=== PATIENT | female | born 1990 | race Caucasian/White ===

== ENCOUNTER 2021-02-25 18:31 | Emergency (ER) | payer SELFPAY ==
[2021-02-25 18:37] VITALS: BP 134/81; PULSE 75; RESP 18; TEMP 36.2; O2SAT 100
--- NOTE | 2021-02-25 18:38 | ED.FEMALEGU ---
HPI - Female Genitourinary General Chief complaint: Urogenital-Female Stated complaint: Possible UTI Time Seen by Provider: 02/25/21 18:37 Source: patient and RN notes reviewed History of Present Illness HPI Narrative: Patient is a 30-year-old female who presents the urgent care with complaints of a possible UTI. Patient states this morning she started having burning with urination and urinary frequency. States that she kind of felt it, and over the last week . Denies of any fever, chills, nausea, vomiting, abdominal pain. Patient has not taken anything [id number] for her symptoms. No other acute complaints. No acute distress noted. Patient aware of the plan of care. Some parts of this dictation were generated by voice recognition software and may contain typographical and/or grammatical inaccuracies. Related Data Allergies Allergy/AdvReac Type Severity Reaction Status Date / Time Penicillins Allergy Unknown HIVES Verified 02/25/21 18:46 Review of Systems Review of Systems: CONSTITUTIONAL: Denies fever, chills, or sweats. EYES: Denies visual changes, redness, or discharge. ENT: Denies rhinorrhea, congestion, sore throat, or otalgia. CARDIOVASCULAR: Denies chest pain, palpitations, or edema. RESPIRATORY: Denies cough or dyspnea. GASTROINTESTINAL: Denies abdominal pain, nausea, vomiting, or diarrhea. GENITOURINARY: Reports dysuria and urinary frequency SKIN: Denies rash or itching. MUSCULOSKELETAL: Denies back pain, joint pain, or myalgia. NEUROLOGIC: Denies headache, numbness, or weakness. All other systems reviewed are negative, except as documented in HPI. PMFSH Comments At the time of my signature, I reviewed and agree with the nursing past medical, surgical, social, and family history. There is no relevant family history pertinent to the patient complaint. Exam Narrative: GENERAL: This is a well-nourished, well-developed patient, in no apparent distress. HEAD: normocephalic, atraumatic. EYES: PERRL. Sclera clear/white. Vision is grossly intact. EARS: External ears normal NOSE: External nose normal with no obvious nasal discharge, nares without redness, no rhinorrhea. THROAT: Mucous membranes moist NECK: Neck supple CARDIOVASCULAR: Regular rate and rhythm without murmurs, gallops, or rubs. RESPIRATORY: Clear to auscultation. Breath sounds equal bilaterally. No wheezes, rales, or rhonchi. GASTROINTESTINAL: Abdomen soft, non-tender, nondistended. SKIN: warm, intact with no suspicious lesions or rash, good texture and turgor. NEURO: awake, alert, and oriented to person, place and time. There were no obvious focal neurologic abnormalities. EXTREMITIES: No clubbing, cyanosis, or edema. BACK: Negative bilateral CVA tenderness Course Vital Signs Vital signs: Vital Signs Temperature 97.2 F L 02/25/21 18:37 Pulse Rate 75 02/25/21 18:37 Respiratory Rate 18 02/25/21 18:37 Blood Pressure 134/81 02/25/21 18:37 Pulse Oximetry 100 02/25/21 18:37 Temperature 97.2 F L 02/25/21 18:47 Pulse Rate 75 02/25/21 18:47 Respiratory Rate 18 02/25/21 18:47 Blood Pressure 134/81 02/25/21 18:47 Pulse Oximetry 100 02/25/21 18:47 Reviewed MDM - Female Genitourinary MDM Narrative Medical decision making narrative: Reviewed lab results with the patient. She is aware that urine analysis may be indicative to urinary tract infection due to slight bacteria and blood in the urine. Advised the patient to complete the oral antibiotic regimen. Make sure you are eating and drinking with the medication. Increase your water intake and avoid sugary and caffeinated drinks. Do not soak in soapy baths. Wear cotton underwear. If you develop any increase in symptoms associated with nausea, vomiting, fever, chills, abdominal pain?go to the emergency room. We will culture the urine and call if medication needs to be changed, based on culture results. Follow-up with your PCP within 2 to 5 days or for worsening sympto
[2021-02-25 18:47] VITALS: BP 134/81; PULSE 75; RESP 18; TEMP 36.2; O2SAT 100
== END 2021-02-25 18:54 | disposition home or self-care (01) ==
PROVIDERS: Emergency Provider Nurse Practitioner Family
DX: N39.0 Urinary tract infection, site not specified (principal)
CPT/HCPCS: 81003; 87086; 87088; 99213; G0463

== ENCOUNTER 2022-03-21 16:24 | Emergency (ER) | payer OTHER, SELFPAY ==
[2022-03-21 16:30] VITALS: BP 132/79; PULSE 110; RESP 20; TEMP 36.8; O2SAT 100
--- NOTE | 2022-03-21 16:30 | ED.URI ---
HPI - URI/Sore Throat General Chief Complaint: Upper Respiratory Infection Stated Complaint: Sore Throat Time Seen by Provider: 03/21/22 16:30 Source: patient and RN notes reviewed History of Present Illness HPI Narrative: Patient is a 31-year-old female who presents the urgent care with complaints of headache, fever, nasal drainage and sore throat. Patient states that started Monday and the other people in her home of also been symptomatic. Patient states she had a negative COVID test at [facility] this morning. No other acute complaints. No acute distress noted. Patient aware of the plan of care. Some parts of this dictation were generated by voice recognition software and may contain typographical and/or grammatical inaccuracies. Related Data Allergies Allergy/AdvReac Type Severity Reaction Status Date / Time Penicillins Allergy Unknown HIVES Verified 03/21/22 16:35 Review of Systems Review of Systems: CONSTITUTIONAL: Reports a fever EYES: Denies visual changes, redness, or discharge. ENT: Reports of rhinorrhea, postnasal drainage and sore throat CARDIOVASCULAR: Denies chest pain, palpitations, or edema. RESPIRATORY: Denies cough or dyspnea. GASTROINTESTINAL: Denies abdominal pain, nausea, vomiting, or diarrhea. GENITOURINARY: Denies dysuria or hematuria. SKIN: Denies rash or itching. MUSCULOSKELETAL: Denies back pain, joint pain, or myalgia. NEUROLOGIC: Denies headache, numbness, or weakness. All other systems reviewed are negative, except as documented in HPI. PMFSH Comments At the time of my signature, I reviewed and agree with the nursing past medical, surgical, social, and family history. There is no relevant family history pertinent to the patient complaint. Exam Narrative: GENERAL: This is a well-nourished, well-developed patient, in no apparent distress. HEAD: normocephalic, atraumatic. EYES: PERRL. Sclera clear/white. Vision is grossly intact. EARS: External ears normal, auditory canals clear and without drainage, TMs normal without perforation. Hearing grossly intact. NOSE: External nose normal with no obvious nasal discharge, nares without redness, no rhinorrhea. THROAT: Mucous membranes moist. Moderate erythema noted posterior oropharynx with mild bilateral tonsillar edema with bilateral exudate and moderate postnasal drainage NECK: Neck supple, non-tender without lymphadenopathy CARDIOVASCULAR: Regular rate and rhythm without murmurs, gallops, or rubs. RESPIRATORY: Clear to auscultation. Breath sounds equal bilaterally. No wheezes, rales, or rhonchi. SKIN: warm, intact with no suspicious lesions or rash, good texture and turgor. NEURO: awake, alert, and oriented to person, place and time. There were no obvious focal neurologic abnormalities. EXTREMITIES: No clubbing, cyanosis, or edema. Course Course Level of Care: Express Care Visit Vital Signs Vital signs: Vital Signs Temperature 98.2 F 03/21/22 16:30 Pulse Rate 110 H 03/21/22 16:30 Respiratory Rate 20 03/21/22 16:30 Blood Pressure 132/79 03/21/22 16:30 Pulse Oximetry 100 03/21/22 16:30 Oxygen Delivery Room Air 03/21/22 16:30 Temperature 98.2 F 03/21/22 16:36 Pulse Rate 110 H 03/21/22 16:36 Respiratory Rate 20 03/21/22 16:36 Blood Pressure 132/79 03/21/22 16:36 Pulse Oximetry 100 03/21/22 16:36 Oxygen Delivery Room Air 03/21/22 16:36 Reviewed MDM - URI/Sore Throat MDM Narrative Medical decision making narrative: Reviewed lab results with the patient. She is aware that strep swab was positive. Advised to complete the oral antibiotic regimen as prescribed. Be sure to eat and drink with the medication. Use a daily antihistamine such as Claritin or Zyrtec. Use Tylenol/ibuprofen as needed for fever or discomfort. Use a humidifier at night. Change her toothbrush within 2 to 3 days. You are considered contagious for up to 24 hours after the start of antibiotics and must be fever free. Follow-up with bridger
[2022-03-21 16:36] VITALS: BP 132/79; PULSE 110; RESP 20; TEMP 36.8; O2SAT 100
== END 2022-03-21 17:11 | disposition home or self-care (01) ==
PROVIDERS: Emergency Provider Nurse Practitioner Family
DX: J02.0 Streptococcal pharyngitis (principal)
CPT/HCPCS: 87880; 99213; G0463

== ENCOUNTER 2022-04-13 18:08 | Emergency (ER) | payer OTHER, SELFPAY ==
[2022-04-13 18:22] VITALS: BP 116/79; PULSE 75; RESP 16; TEMP 37.2; O2SAT 99
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
== END 2022-04-13 19:01 | disposition home or self-care (01) ==
PROVIDERS: Emergency Provider Nurse Practitioner Family
DX: M79.601 Pain in right arm (principal)
CPT/HCPCS: 99213; G0463

== ENCOUNTER 2022-05-05 18:07 | Emergency (ER) | payer OTHER, SELFPAY ==
[2022-05-05 18:27] VITALS: BP 152/85; PULSE 120; PULSE 75; RESP 20; TEMP 38.8; O2SAT 100
--- NOTE | 2022-05-05 19:02 | ED.URI ---
HPI - URI/Sore Throat General Chief Complaint: Upper Respiratory Infection Stated Complaint: Sore Throat Time Seen by Provider: 05/05/22 19:02 Source: patient and RN notes reviewed Mode of arrival: ambulatory Limitations: no limitations History of Present Illness HPI Narrative: 31-year-old female presents with concern for sore throat, headache, fever, upset stomach since yesterday. She denies cough, nasal congestion, rhinorrhea, vomiting or diarrhea. MD elicited complaint: sore throat Related Data Allergies Allergy/AdvReac Type Severity Reaction Status Date / Time Penicillins Allergy Unknown HIVES Verified 05/05/22 18:44 Review of Systems Review of Systems: CONSTITUTIONAL: Reports malaise, fever. EYES: Denies visual changes, redness, or discharge. ENT: Denies rhinorrhea, congestion, sinus pain, otalgia. Reports sore throat. CARDIOVASCULAR: Denies chest pain, palpitations, or edema. RESPIRATORY: Denies cough. Denies dyspnea. GASTROINTESTINAL: Denies abdominal pain, vomiting, diarrhea. Reports upset stomach SKIN: Denies rash or itching. MUSCULOSKELETAL: Reports myalgia. NEUROLOGIC: Reports headache. All systems reviewed & are unremarkable except as noted in HPI and below PMFSH Comments At time of signature, agree with nursing past medical, surgical, social and family history. There is no relevant family history pertinent to the presenting complaint Exam Narrative: GENERAL: Well-appearing, well-nourished, and in no acute distress. HEAD: Normocephalic EYES: PERRLA, conjunctivae clear ENT: Nares clear, turbinates edematous and erythematous, clear discharge. Mucous membranes moist. TM pearly patino with dull light reflex bilaterally; no tragal tenderness. Oropharynx not erythematous without lesions. Tonsils not enlarged and without exudate, no drooling, no hoarseness, no trismus, uvula midline. NECK: Supple. No lymphadenopathy CHEST: Clear to auscultation, breath sounds equal. No wheezing, rhonchi, rales, or stridor. No respiratory distress, speaks in full sentences. HEART: Regular rate and rhythm. No murmur heard. SKIN: Warm, dry, no rash. NEURO: Alert and oriented x3. PSYCH: Normal mood and affect Course Course Emergency Course: Patient is aware of diagnosis, understands and agrees to treatment plan. Anticipatory guidance given. Patient agrees to follow-up as directed and is aware of reasons to seek care at the emergency department. Portions of this record may have been created with voice recognition software Level of Care: Express Care Visit Vital Signs Vital signs: Vital Signs Temperature 101.9 F H 05/05/22 18:27 Pulse Rate 75 05/05/22 18:27 Respiratory Rate 20 05/05/22 18:27 Blood Pressure 152/85 H 05/05/22 18:27 Pulse Oximetry 100 05/05/22 18:27 Oxygen Delivery Room Air 05/05/22 18:27 Temperature 101.9 F H 05/05/22 18:27 Pulse Rate 120 H 05/05/22 18:27 Respiratory Rate 20 05/05/22 18:27 Blood Pressure 152/85 H 05/05/22 18:27 Pulse Oximetry 100 05/05/22 18:27 Oxygen Delivery Room Air 05/05/22 18:27 Reviewed. MDM - URI/Sore Throat MDM Narrative Medical decision making narrative: Differential diagnosis considered: Read virus, strep pharyngitis, allergic rhinitis, upper respiratory tract infection, sinusitis, rhinosinusitis, nasopharyngitis. viral pharyngitis, otitis media, otitis externa, pneumonia, bronchitis, viral cough syndrome, viral syndrome, and influenza. Exam findings show no acute concerns or changes; patient is non-toxic appearing and is in no distress. Patient is appropriate for outpatient treatment and follow-up. Lab Data Attestation: I reviewed the patient's lab results. Labs: Strep Screen Presumptive Negative *(Reference Range: Negative)* Critical Care Time Critical Care Time Critical Care Time: No Discharge Plan Discharge Clinical Impression: Acute tonsillitis Patient Disposi
== END 2022-05-05 19:18 | disposition home or self-care (01) ==
PROVIDERS: Emergency Provider Nurse Practitioner
DX: J03.90 Acute tonsillitis, unspecified (principal)
CPT/HCPCS: 87081; 87880; 99213; G0463

== ENCOUNTER 2023-04-16 08:50 | Emergency (ER) | payer OTHER, SELFPAY ==
[2023-04-16 08:58] VITALS: BP 131/71; PULSE 89; RESP 16; TEMP 36.6; O2SAT 98
--- NOTE | 2023-04-16 09:00 | ED.URI ---
HPI - URI/Sore Throat General Chief Complaint: Upper Respiratory Infection Stated Complaint: Sore Throat History of Present Illness HPI Narrative: PATIENT PRESENTS WITH SORE THROAT NO TROUBLE SWALLOWING AND NO DROOLING SLIGHT COUGH NO FEVER DENEIS ANY URI SYMPTOMS GOOD PO INTAKE AND NORMAL URINATION NORMALLY HEALTHY INDIVIDUAL . CONCERNED THAT THEY MAY HAVE STREP THROAT AND WOULD LIE SWABBED. Related Data Allergies Allergy/AdvReac Type Severity Reaction Status Date / Time Penicillins Allergy Unknown HIVES Verified 04/16/23 09:03 Review of Systems Review of Systems: cONSTITUTIONAL: Denies fever, chills, or sweats. EYES: Denies visual changes, redness, or discharge. ENT: Denies rhinorrhea, congestion, sore throat, or otalgia. CARDIOVASCULAR: Denies chest pain, palpitations, or edema. RESPIRATORY: Denies cough or dyspnea. GASTROINTESTINAL: Denies abdominal pain, nausea, vomiting, or diarrhea. GENITOURINARY: Denies dysuria or hematuria. SKIN: Denies rash or itching. MUSCULOSKELETAL: Denies back pain, joint pain, or myalgia. NEUROLOGIC: Denies headache, numbness, or weakness. PSYCHIATRIC: Denies anxiety or depression. CONSTITUTIONAL: Denies fever, chills, or sweats. EYES: Denies visual changes, redness, or discharge. ENT: Denies rhinorrhea, congestion, sore throat, or otalgia. CARDIOVASCULAR: Denies chest pain, palpitations, or edema. RESPIRATORY: Denies cough or dyspnea. GASTROINTESTINAL: Denies abdominal pain, nausea, vomiting, or diarrhea. GENITOURINARY: Denies dysuria or hematuria. SKIN: Denies rash or itching. MUSCULOSKELETAL: Denies back pain, joint pain, or myalgia. NEUROLOGIC: Denies headache, numbness, or weakness. PSYCHIATRIC: Denies anxiety or depression. PMFSH Comments AT TIME OF SIGNATURE, AGREE WITH NURSING PAST MEDICAL, SURGICAL, SOCIAL AND FAMILY HISTORY. THERE IS NO RELEVANT FAMILY HISTORY PERTINENT TO THE PRESENTING COMPLAINT Exam Narrative: THE PATIENT IS A WELL-DEVELOPED, WELL-NOURISHED IN NO ACUTE DISTRESS. SKIN: SKIN IS WARM AND DRY WITHOUT ERYTHEMA, SWELLING OR EXUDATE. THERE IS GOOD TURGOR. NO TENTING. HEAD: ATRAUMATIC. NORMOCEPHALIC. NO TEMPORAL OR SCALP TENDERNESS. EYES: MOIST AND BRIGHT. SCLERA AND CONJUNCTIVAE NORMAL. NO DISCHARGE. PERRLA. EXTRAOCULAR MOTIONS INTACT. GROSS VISUAL ACUITY INTACT. EARS: PINNA IS NORMAL SHAPE AND CONTOUR. CLEAR EXTERNAL AUDITORY CANALS. TM PEARLY [place] WITH GOOD CONE OF LIGHT, NO ERYTHEMA OR SUPPURATION. BILATERAL CERUMEN NOTED NO GROSS HEARING DEFICIT. NOSE: PINK, MOIST MUCOSA WITH GOOD AIR MOVEMENT. CLEAR RHINORRHEA WITHOUT NASAL FLARING. SEPTUM MIDLINE. MOUTH: MOIST MUCOUS MEMBRANES. THROAT; MILD ERYTHEMA NOTED TO POSTERIOR OROPHARYNX WITH MODERATE POSTNASAL DRAINAGE. WIT EXUDATE NO ULCERATION.. UVULA MIDLINE. NORMAL MOVEMENT OF SOFT PALATE. NECK: SUPPLE AND NONTENDER WITH FULL RANGE OF MOTION WITHOUT DISCOMFORT. NO MENINGEAL SIGNS. LUNGS: EQUAL AND BILATERAL BREATH SOUNDS WITHOUT WHEEZES, RALES OR RHONCHI. CHEST: THE CHEST WALL IS WITHOUT RETRACTIONS OR USE OF ACCESSORY MUSCLES. HEART: HAS A REGULAR RATE AND RHYTHM WITHOUT MURMUR, GALLOPS, CLICK OR RUB. ABDOMEN: SOFT, NONTENDER WITH POSITIVE ACTIVE BOWEL SOUNDS. NO REBOUND TENDERNESS. EXTREMITIES: WITHOUT CYANOSIS, CLUBBING OR EDEMA. EQUAL 2+ DISTAL PULSES AND 2 SECOND CAPILLARY REFILL NOTED. NEUROLOGIC: ALERT, ACTIVE, . THE PATIENT MOVES ALL EXTREMITIES WITH NORMAL MUSCLE STRENGTH. NORMAL MUSCLE TONE IS NOTED. NORMAL COORDINATION IS NOTED. NO FOCAL NEUROLOGICAL FINDINGS NOTED. Course Course Level of Care: Express Care Visit Vital Signs Vital signs: Vital Signs Temperature 36.6 C 04/16/23 08:58 Pulse Rate 89 04/16/23 08:58 Respiratory Rate 16 04/16/23 08:58 Blood Pressure 131/71 04/16/23 08:58 Pulse Oximetry 98 04/16/23 08:58 Oxygen Delivery Room Air 04/16/23 08:58 Temperature 36.6 C 04/16/23 08:58 Pulse Rate 89 04/16/23 08:58 Respiratory Rate 16 04/16/23 08:58
== END 2023-04-16 09:16 | disposition home or self-care (01) ==
PROVIDERS: Emergency Provider Nurse Practitioner Family
DX: J02.9 Acute pharyngitis, unspecified (principal)
CPT/HCPCS: 87880; 99213; G0463

== ENCOUNTER 2023-07-15 10:01 | Emergency (ER) | payer OTHER, SELFPAY ==
[2023-07-15 10:06] VITALS: BP 124/76; PULSE 90; RESP 20; TEMP 36.5; O2SAT 98
[2023-07-15 10:12] VITALS: BP 124/76; PULSE 90; RESP 20; TEMP 36.5
--- NOTE | 2023-07-15 10:30 | ED.EAR ---
HPI - Ear Problem General Chief complaint: Ear Stated complaint: ears hurts Time Seen by Provider: 07/15/23 10:30 Source: patient, RN notes reviewed and old records reviewed Mode of arrival: ambulatory Limitations: no limitations History of Present Illness HPI Narrative: 32 year old female who present to [facility] care with complaints of one week duration of bilateral ear discomfort especially right with some sinus congestion and drainage. Patient reports that she has not had any drainage from her ears, no fever or any changes in her hearing. Patient reports that she has taken Tylenol for her discomfort.Patient denies any cough or chest congestion denies any sore throat or any shortness of breath or wheezing. 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 MD Complaint: ear pain Location: bilateral Duration: intermittent Severity: moderate Discharge from ear: Reports no Treatment prior to arrival: oral analgesic (Tylenol) Related Data Home Medications Medication Instructions Recorded Confirmed bupropion HCl 300 mg 24 hr tablet, 300 mg PO DAILY 07/15/23 07/15/23 extended release Allergies Allergy/AdvReac Type Severity Reaction Status Date / Time Penicillins Allergy Unknown HIVES Verified 07/15/23 10:06 Review of Systems Review of Systems: CONSTITUTIONAL: Denies malaise, chills, sweats, or fever. EYES: Denies visual changes, redness, or discharge. ENT: Reports rhinorrhea, congestion, no sinus pain, positive otalgia and no sore throat. CARDIOVASCULAR: Denies chest pain, palpitations, or edema. RESPIRATORY: Reports no cough.? Denies dyspnea. GASTROINTESTINAL: Denies abdominal pain, nausea, vomiting, diarrhea SKIN: Denies rash or itching. MUSCULOSKELETAL: Denies myalgia. NEUROLOGIC: Denies headache. All systems reviewed & are unremarkable except as noted in HPI and below PMFSH Past Medical History Medical History (Updated 07/15/23 @ 15:37 by Deisy Swift NP) Anxiety Bipolar disorder Strep throat Surgical History Surgical History (Updated 07/15/23 @ 15:38 by Deisy Swift NP) H/O cervical biopsy History of tubal ligation Social History Social History (Updated 07/15/23 @ 12:14 by Deisy Swift NP) Smoking status: Never smoker Alcohol intake: current Alcohol use details: social Substance use type: does not use Living arrangements: with family Gender identity (if verbalized by the patient): Female Comments At time of signature, agree with nursing past medical, surgical, social and family history. There is no relevant family history pertinent to the presenting complaint Exam Narrative: GENERAL: Well-appearing, well-nourished, and in no acute distress. HEAD: Normocephalic EYES: PERRLA, conjunctivae clear ENT: Nares clear, turbinates edematous and erythematous, clear discharge. Mucous membranes moist. TM pearly patino with dull light reflex bilaterally fluid note to ears,; no tragal tenderness. Oropharynx erythematous without lesions. Tonsils enlarged and without exudate, no drooling, no hoarseness, no trismus, uvula midline.some post nasal discharge. NECK: Supple. No lymphadenopathy CHEST: Clear to auscultation, breath sounds equal. No wheezing, rhonchi, rales, or stridor. No respiratory distress, speaks in full sentences.no cough noted SAO2 98% on room air. HEART: Regular rate and rhythm. No murmur heard. SKIN: Warm, dry, no rash. NEURO: Alert and oriented x3. PSYCH: Normal mood and affect Course Course Emergency Course: Patient is aware of diagnosis, understands and agrees to treatment plan.? Anticipatory guidance given.? Patient agrees to follow-up as directed and is aware of reasons to seek care at the emergency department. Portions of this record may have been created with voice recognition software Level of Care: Express Care Visit Vital Signs Vital signs: Vital Signs Tem
== END 2023-07-15 10:50 | disposition home or self-care (01) ==
PROVIDERS: Emergency Provider Registered Nurse
DX: H69.91 Unspecified Eustachian tube disorder, right ear (principal); F41.9 Anxiety disorder, unspecified
CPT/HCPCS: 99213; G0463

== ENCOUNTER 2023-08-27 15:58 | Emergency (ER) | payer OTHER, SELFPAY ==
[2023-08-27 16:00] VITALS: BP 146/85; PULSE 103; RESP 20; TEMP 37.9; O2SAT 100
--- NOTE | 2023-08-27 17:12 | ED.URI ---
HPI - URI/Sore Throat General Chief Complaint: Upper Respiratory Infection Stated Complaint: throat Time Seen by Provider: 08/27/23 17:12 Source: patient, RN notes reviewed and old records reviewed Mode of arrival: ambulatory Limitations: no limitations History of Present Illness HPI Narrative: 32-year-old female who presents to [facility] with complaints of sore throat, some headache pain and fever up to 100.2F for 1 day duration. Patient reports that she she has had history of strep throat in the past. patient reports no known ill contacts. Patient reports that she has taken some Tylenol for her symptoms. Patient reports no shortness of breath , no ear pain or cough, denies any nausea or vomiting or diarrhea, MD elicited complaint: sore throat Pertinent past history: other (strep throat) Onset (ago): day(s) (1) Severity: moderate Pain scale (0-10): 5 Able to tolerate fluids by mouth: Yes Treatments prior to arrival: acetaminophen Related Data Home Medications Medication Instructions Recorded Confirmed bupropion HCl 300 mg 24 hr tablet, 300 mg PO DAILY 07/15/23 08/27/23 extended release buspirone 10 mg tablet 20 mg PO BID 08/27/23 08/27/23 hydroxyzine HCl 25 mg tablet 1 mg PO DAILY PRN Anxiety 08/27/23 08/27/23 Allergies Allergy/AdvReac Type Severity Reaction Status Date / Time Penicillins Allergy Unknown HIVES Verified 08/27/23 16:31 Review of Systems Review of Systems: CONSTITUTIONAL: Reports malaise, chills, sweats, or fever. EYES: Denies visual changes, redness, or discharge. ENT: Reports rhinorrhea, congestion, no sinus pain, no otalgia and positive for sore throat. CARDIOVASCULAR: Denies chest pain, palpitations, or edema. RESPIRATORY: Reports cough.? Denies dyspnea. GASTROINTESTINAL: Denies abdominal pain, nausea, vomiting, diarrhea SKIN: Denies rash or itching. MUSCULOSKELETAL: Denies myalgia. NEUROLOGIC: Reports headache. All systems reviewed & are unremarkable except as noted in HPI and below PMFSH Past Medical History Medical History Anxiety Bipolar disorder Strep throat Surgical History Surgical History H/O cervical biopsy History of tubal ligation Social History Social History (Updated 07/15/23 @ 12:14 by Deisy Swift NP) Smoking status: Never smoker Alcohol intake: current Alcohol use details: social Substance use type: does not use Living arrangements: with family Gender identity (if verbalized by the patient): Female Comments At time of signature, agree with nursing past medical, surgical, social and family history. There is no relevant family history pertinent to the presenting complaint Exam Narrative: GENERAL: Well-appearing, well-nourished, and in no acute distress. HEAD: Normocephalic EYES: PERRLA, conjunctivae clear ENT: Nares clear, turbinates edematous and erythematous, clear discharge. Mucous membranes moist. TM pearly patino with dull light reflex bilaterally; no tragal tenderness. Oropharynx erythematous without lesions. Tonsils enlarged and without exudate, no drooling, no hoarseness, no trismus, uvula midline. NECK: Supple. lymphadenopathy CHEST: Clear to auscultation, breath sounds equal. No wheezing, rhonchi, rales, or stridor. No respiratory distress, speaks in full sentences.SAO2 100% on room air, HEART: Regular rate and rhythm. No murmur heard. SKIN: Warm, dry, no rash. NEURO: Alert and oriented x3. PSYCH: Normal mood and affect Course Course Emergency Course: Patient is aware of diagnosis, understands and agrees to treatment plan.? Anticipatory guidance given.? Patient agrees to follow-up as directed and is aware of reasons to seek care at the emergency department. Portions of this record may have been created with voice recognition software Level of Care: Express Care Visit Vital Signs
== END 2023-08-27 17:25 | disposition home or self-care (01) ==
PROVIDERS: Emergency Provider Registered Nurse; PCP Family Medicine
DX: J02.0 Streptococcal pharyngitis (principal); F41.9 Anxiety disorder, unspecified
CPT/HCPCS: 87880; 99213; G0463

== ENCOUNTER 2024-02-15 17:35 | Emergency (ER) | payer OTHER, SELFPAY ==
[2024-02-15 18:20] VITALS: BP 148/82; PULSE 93; RESP 15; TEMP 36.4; O2SAT 100
--- NOTE | 2024-02-15 23:15 | ED.URI ---
HPI - URI/Sore Throat General Chief Complaint: Upper Respiratory Infection Stated Complaint: Sore Throat and Headache Time Seen by Provider: 02/15/24 18:52 Source: patient, RN notes reviewed and old records reviewed Mode of arrival: ambulatory Limitations: no limitations History of Present Illness HPI Narrative: 33-year-old female to Express Care for complaint of headache, sore throat, bilateral ear pain for 2 days. Patient reports history of chronic strep throat with last episode in August. Patient endorses allergy to penicillin. Patient denies fever, cough, shortness of breath, chest pain, fever. Patient hypertensive in triage. Patient has not attempted to treat her symptoms at home. Patient able to tolerate fluids by mouth. Respirations even and nonlabored. Patient in no acute distress. Related Data Home Medications Medication Instructions Recorded Confirmed bupropion HCl 300 mg 24 hr tablet, 300 mg PO DAILY 07/15/23 02/15/24 extended release buspirone 10 mg tablet 20 mg PO BID 08/27/23 02/15/24 aripiprazole 2 mg tablet 2 mg PO DAILY 02/15/24 02/15/24 Allergies Allergy/AdvReac Type Severity Reaction Status Date / Time Penicillins Allergy Unknown HIVES Verified 08/27/23 16:31 Review of Systems Review of Systems: All systems reviewed & are unremarkable except as noted in HPI and below Constitutional: Constitutional: Reports as per HPI, Denies fever(s) and Reports headache(s) Eyes: Eyes: Reports no additional eye complaints ENT: Reports as per HPI, Reports otalgia ( Bilateral) and Reports sore throat Cardiovascular: Cardiovascular: Reports no additional cardiovascular complaints, Denies chest pain and Denies dyspnea Respiratory: Respiratory: Reports no additional respiratory complaints, Denies cough and Denies dyspnea Musculoskeletal: Musculoskeletal: Reports no additional musculoskeletal complaints Neurologic: Reports system reviewed and no additional complaints, except as documented Psychiatric: Psychiatric: Reports no additional psychiatric complaints PMFSH Past Medical History Medical History Anxiety Bipolar disorder Strep throat Surgical History Surgical History H/O cervical biopsy History of tubal ligation Social History Social History (Updated 07/15/23 @ 12:14 by Deisy Swift NP) Smoking status: Never smoker Alcohol intake: current Alcohol use details: social Substance use type: does not use Living arrangements: with family Gender identity (if verbalized by the patient): Female Comments At the time of my signature, I reviewed and agree with the nursing past medical, surgical, social, and family history. There is no relevant family history pertinent to the patient complaint. Exam Const: General: cooperative, no acute distress, alert, tired appearing, uncomfortable and well nourished Nutritional Appearance: well nourished Orientation/consciousness: patient oriented x3 Limitations: no limitations HENMT: Head: normal to inspection Ears: external ears normal and TM abnormal with fluid behind the TM bilateral Face/Nose/Sinus: Normal external nose present, Normal nares present, normal facial exam, No erythema and No edema Face and sinus: normal facial exam, no erythema and no edema Mouth: Yes Normal oral and palatal mucosa present Throat: uvula midline and abnormal tonsil bilateral erythema, exudates and hypertrophy 2+ Eyes: General: appearance normal, both eyes and all related structures Neck: Neck: normal visual inspection, full ROM and no meningeal signs Lymphatic: no lymphadenopathy noted and no lymphedema noted Chest: Chest palpation & inspection: normal inspection of the chest Resp: Effort & Inspection: normal respiratory effort and able to speak in complete sentences Auscultation: clear to auscultation bilaterally Cardio: Jugular venous d
== END 2024-02-15 19:09 | disposition home or self-care (01) ==
PROVIDERS: Emergency Provider Nurse Practitioner Family
DX: J02.9 Acute pharyngitis, unspecified (principal); F41.9 Anxiety disorder, unspecified
CPT/HCPCS: 87081; 99213; G0463

== ENCOUNTER 2024-10-07 12:59 | Emergency (ER) | payer OTHER, SELFPAY ==
[2024-10-07 13:10] VITALS: BP 113/72; PULSE 85; RESP 17; TEMP 36.4; O2SAT 98
--- NOTE | 2024-10-07 14:01 | ED.EAR ---
HPI - Ear Problem General Chief complaint: Ear Stated complaint: Ear Pain Source: patient and RN notes reviewed Mode of arrival: ambulatory Limitations: no limitations History of Present Illness HPI Narrative: 33-year-old female presents express care complaining of right ear pain. Said her symptoms started yesterday. She says her right ear hearing is a little diminished as well. She says her throat is a little scratchy . Denies any cough, congestion, fever, chills, body aches. She says she has a history of ear infections. She denies wearing headphones in her right ear her swimming recently. She said she does use Q-tips routinely to clean her ears. Related Data Home Medications ?Medication ?Instructions ?Recorded ?Confirmed ?Last Taken ?Type bupropion HCl 300 mg 24 hr tablet, 300 mg PO DAILY 07/15/23 02/15/24 Unknown History extended release buspirone 10 mg tablet 20 mg PO BID 08/27/23 02/15/24 Unknown History aripiprazole 2 mg tablet 2 mg PO DAILY 02/15/24 02/15/24 Unknown History Allergies Allergy/AdvReac Type Severity Reaction Status Date / Time Penicillins Allergy Unknown HIVES Verified 10/07/24 13:10 Review of Systems Review of Systems: CONSTITUTIONAL: Denies fever, chills, or sweats. EYES: Denies visual changes, redness, or discharge. ENT: Denies rhinorrhea, congestion. Positive for otalgia, sore throat, and decreased hearing. CARDIOVASCULAR: Denies chest pain, palpitations, or edema. RESPIRATORY: Denies cough or dyspnea. GASTROINTESTINAL: Denies abdominal pain, nausea, vomiting, or diarrhea. GENITOURINARY: Denies dysuria or hematuria. SKIN: Denies rash or itching. MUSCULOSKELETAL: Denies back pain, joint pain, or myalgia. NEUROLOGIC: Denies headache, numbness, or weakness. PSYCHIATRIC: Denies anxiety or depression. All other systems reviewed are negative, except as documented in HPI. [facility] Past Medical History Medical History Bipolar disorder Anxiety Strep throat Surgical History Surgical History History of tubal ligation H/O cervical biopsy Social History Social History (Reviewed 10/07/24 @ 14:03 by NATALY Pereira Smoking status: Never smoker Alcohol intake: current Alcohol use details: social Substance use type: does not use Living arrangements: with family Gender identity (if verbalized by the patient): Female Comments At the time of my signature, I reviewed and agree with the nursing past medical, surgical, social, and family history. There is no relevant family history pertinent to the patient complaint. Exam Narrative: GENERAL: This is a well-nourished, well-developed adult, in no apparent distress. They are non ill-appearing, nontoxic appearing. HEAD: normocephalic, atraumatic. EYES: Sclera clear/white. Vision is grossly intact. EARS: External ears normal, right auditory canal with erythematous without discharge. Left Auditory canal clear and without drainage, TMs normal without perforation. Hearing grossly intact. NOSE: External nose normal with no obvious nasal discharge, nares without redness, no rhinorrhea. THROAT: Mucous membranes moist, posterior pharynx clear. Uvula midline. NECK: Neck supple, non-tender without lymphadenopathy, masses or thyromegaly. CARDIOVASCULAR: Regular rate and rhythm without murmurs, gallops, or rubs. RESPIRATORY: Clear to auscultation. Breath sounds equal bilaterally. No wheezes, rales, or rhonchi. SKIN: warm, Dry, intact with no suspicious lesions or rash, good texture and turgor. NEURO: awake, alert, and oriented to person, place and time. There were no obvious focal neurologic abnormalities. Course Course Emergency Course: Patient is aware of diagnosis, understands and agrees to treatment plan. Anticipatory guidance given. Patient agrees to follow-up as directed and is aware of reasons to seek care at the emergency department. Portions of this record may have been created with voice recognition software Level of Care: Express Care Visit Vital Signs Vital signs: Vital Signs Temperature 97.6 F 10/07/24 13:10 Pulse Rate 85 10/07/24 13:10 Respiratory Rate 10/07/24 13:10 Blood Pressure 113/72 10/07/24 13:10 Pulse Oximetry 98 10/07/24 13:10 Oxygen Delivery Room Air 10/07/24 13:10 Temperature 97.6 F 10/07/24 13:10 Pulse Rate 85 10/07/24 13:10 Respiratory Rate 10/07/24 13:10 Blood Pressure 113/72 10/07/24 13:10 Pulse Oximetry 98 10/07/24 13:10 Oxygen Delivery Room Air 10/07/24 13:10 Reviewed Medical Decision Making MDM Narrative Medical decision making narrative: Right ear canal has mild swelling and redness. Patient may have otitis externa. She denies swimming recently. Left ear is unremarkable. TMs are intact bilaterally without redness. Will treat empirically with ofloxacin ear drops for the right ear. Discussed physical exam findings. Advised supportive measures and signs/symptoms to go to the ER. Pt is appropriate for outpt treatment and f/u. Differential Diagnosis Differential Diagnosis: Otitis externa, otitis media, allergic rhinitis Vital Signs Vital Signs: Vital Signs Temperature 97.6 F 10/07/24 13:10 Pulse Rate 85 10/07/24 13:10 Respiratory Rate 17 10/07/24 13:10 Blood Pressure 113/72 10/07/24 13:10 Pulse Oximetry 98 10/07/24 13:10 Oxygen Delivery Room Air 10/07/24 13:10 Temperature 97.6 F 10/07/24 13:10 Pulse Rate 85 10/07/24 13:10 Respiratory Rate 17 10/07/24 13:10 Blood Pressure 113/72 10/07/24 13:10 Pulse Oximetry 98 10/07/24 13:10 Oxygen Delivery Room Air 10/07/24 13:10 Critical Care Time Critical Care Time Critical Care Time: No Discharge Plan Discharge Clinical Impression: Otitis externa Qualifiers: Otitis externa type: unspecified type Chronicity: acute Laterality: right Qualified Code(s): H60.501 - Unspecified acute noninfective otitis externa, right ear Patient Disposition: Home Condition: Stable Instructions: Antibiotic Form, Swimmer's Ear (ED) Additional Instructions: -Ear drops as directed for 7-10 days until the pain and swelling are gone. -When administer drug into the affected ear; make sure to ly down with the affected ear facing upward, message the ear canal to help the drops reach the medial end of the canal, then remain in that position for at least 5 mintues. -Avoid using cotton tipped applicator for ears cleaning -Avoid exposing swimming or exposing the affected ear to water during the treatment period Take or alternate tylenol or ibuprofen every 4 - 6 hours if needed for pain. Follow up with primary care provider if condition is not improving in 7 days or sooner if there is new concern. Patient Language: Icelandic Prescriptions: New ofloxacin 0.3 % drops 10 drp RIGHT EAR DAILY 7 Days Qty: 10 0RF No Action bupropion HCl 300 mg tablet extended release 24 hr 300 mg PO DAILY buspirone 10 mg tablet 20 mg PO BID aripiprazole 2 mg tablet 2 mg PO DAILY Follow-up/Referrals: Aline,Yamil Santana MD [Primary Care Provider] - Time of Disposition: 13:36
--- OUTSIDE RECORDS SUMMARY | 2024-10-07 14:42 | XMS_ITS | Clinical Summary ---
Author Organization [facility] Address [address] [place] [address] Phone Care Team Providers Care Medical Educator Name Role Phone Provider, None Primary Care Provider Unavailabl e Social History Tobacco Use Types Packs/Day Years Used Date Smoking Tobacco: Never Assessed Comments Unknown Sex and Gender Information Value Date Recorded Sex Assigned at Not on file Legal Sex Female 12:40 AM CDT Gender Identity Not on file Sexual Orientation Not on file Plan of Treatment Health Maintenance Due Date Last Done Comments Hepatitis C Virus (HCV) Screening 1992 Hepatitis B Immunization (1 of 3 - 19+ 3-dose series) 12/20/2011 Pap Smear 2013 Cervical Cancer Screening (CCS) 2022 HPV/Cotest 2022 Influenza Immunization (#1) 2024 SARS-COV-2 Immunization (2023- season) 2024 09/25/2020, 09/04/2020 Respiratory Syncytial Virus (RSV) Immunization (Adult) (1 - 1-dose 75+ series) 12/20/2067 DTaP/Tdap/Td Immunization Discontinued 06/12/2018 TdaP Immunization Completed 06/12/2018 Meningococcal Immunization (ACWY) Aged Out No longer eligible based on patient's age to complete this topic Pneumococcal Immunization Combined Aged Out No longer eligible based on patient's age to complete this topic Rotavirus Immunization Aged Out No lo nger eligible based on patient's age to complete this topic Insurance [place] [address] [place] [address] Care Teams Medical Educator Relationship Specialty Start Date End Date Provider, None [place] PCP - General 12/22/17
== END 2024-10-07 13:42 | disposition home or self-care (01) ==
PROVIDERS: PCP Internal Medicine Infectious Disease
DX: H60.501 Unspecified acute noninfective otitis externa, right ear (principal); F41.9 Anxiety disorder, unspecified
CPT/HCPCS: 99213; G0463